=== PATIENT | female | born 1945 | race Hispanic/Latino ===

== ENCOUNTER → 2019-01-25 | Outpatient (CLI) | payer OTHER, MEDICARE ==
[~2019-01-25] MED LIST: ACET650T24 PO; ASPI-555 PO; CA C-5 PO; CHOL100040 PO; HYDR-2132 PO; MULT-1250 PO; OMEP20TA25 PO; SIMV40TA5 PO; VALS1TAB77 PO
== END | disposition home or self-care (01) ==
LOC: RAH 11:04
PROVIDERS: ATTEND Internal Medicine
DX: M47.812 Spondylosis without myelopathy or radiculopathy, cervical region (principal)
CPT/HCPCS: 72040

== ENCOUNTER → 2019-06-02 | Outpatient (CLI) | payer OTHER, MEDICARE ==
[~2019-06-02] MED LIST changes: +SIMV-46 PO; -SIMV40TA5 PO
== END | disposition home or self-care (01) ==
LOC: RAH 10:10
PROVIDERS: ATTEND Internal Medicine
DX: M47.815 Spondylosis without myelopathy or radiculopathy, thoracolumbar region (principal); M89.38 Hypertrophy of bone, other site; M16.11 Unilateral primary osteoarthritis, right hip; M25.751 Osteophyte, right hip; I70.0 Atherosclerosis of aorta; M95.4 Acquired deformity of chest and rib; M43.8X4 Other specified deforming dorsopathies, thoracic region; I70.90 Unspecified atherosclerosis; Z96.611 Presence of right artificial shoulder joint
CPT/HCPCS: 71046; 72100; 73502

== ENCOUNTER → 2020-01-03 | Outpatient (CLI) | payer OTHER, MEDICARE ==
[~2020-01-03] MED LIST changes: -ASPI-555 PO; +ASPI-556 PO
== END | disposition home or self-care (01) ==
LOC: OIH 15:53
PROVIDERS: ATTEND Internal Medicine
DX: J44.9 Chronic obstructive pulmonary disease, unspecified (principal); M47.814 Spondylosis without myelopathy or radiculopathy, thoracic region; M40.294 Other kyphosis, thoracic region; M95.4 Acquired deformity of chest and rib; I70.0 Atherosclerosis of aorta; Z98.890 Other specified postprocedural states
CPT/HCPCS: 71046

== ENCOUNTER → 2020-01-16 | Outpatient (CLI) | payer OTHER, MEDICARE | END | disposition home or self-care (01) | LOC: RAH 10:00 | PROVIDERS: ATTEND Internal Medicine | DX: I51.7 Cardiomegaly (principal); J44.9 Chronic obstructive pulmonary disease, unspecified | CPT/HCPCS: 93306; 93356 ==